=== PATIENT | male | born 1970 | race Caucasian/White ===

== ENCOUNTER 2025-04-17 06:16 | Day surgery (SDC) | payer OTHER, SELFPAY | END 2025-04-17 13:20 | disposition home or self-care (01) | LOC: GI 06:16 | PROVIDERS: ATTENDING PHYSICIAN Specialist | DX: Z12.11 Encounter for screening for malignant neoplasm of colon (principal); K51.90 Ulcerative colitis, unspecified, without complications; K52.3 Indeterminate colitis; K62.89 Other specified diseases of anus and rectum | CPT/HCPCS: 45380; 88305 ==

== ENCOUNTER 2025-04-17 13:04 | Emergency (ER) | payer OTHER, SELFPAY ==
[2025-04-17 13:09] VITALS: BP 140/76
[2025-04-17 13:59] VITALS: BP 122/70
--- NOTE | 2025-04-17 14:06 | ED.GENMED ---
History of Present Illness
General
Chief Complaint: Abdominal Pain
Time Seen by Provider: 04/17/25 14:04
History of Present Illness
History of Present Illness:
TIME OF INITIAL ENCOUNTER: 2:10 PM
HPI: The patient had colonoscopy today. He has a history of ulcerative colitis and he had several biopsies performed today. As he was waking up, he started having severe abdominal pain, vomiting, and bloody diarrhea. He has had colonoscopies in
the past and has had some pain after colonoscopies but not this severe. He was sent here for CT imaging to evaluate for perforation. However, the patient states that his pain is now improving. He did receive Decadron and Zofran prior to coming
here. He received propofol for the procedure.
EXAM:
GENERAL: Well appearing in no distress
HEENT: Moist oral mucosa
CARDIOVASCULAR: No murmurs, normal heart rate, regular rhythm, No chest wall tenderness
PULMONARY: No respiratory distress, breath sounds are clear and equal
ABDOMEN: Soft with no peritoneal signs, minimal if any abdominal tenderness
NEUROLOGIC: Excellent strength all extremities, no coordination deficits
PSYCHIATRIC: Appropriate mental status, normal insight and judgement
EXTREMITIES: Nontender, no edema, moves all extremities equally
SKIN: No rash, no lesions
NUMBER AND COMPLEXITY OF PROBLEMS ADDRESSED AT THE ENCOUNTER
� Chronic conditions affecting care: Ulcerative colitis
� Acute Exacerbation and/or Progression of Chronic Illness: This is an acute problem
� Differential Diagnosis includes: Flare of ulcerative colitis, bowel perforation, gastroenteritis, adverse reaction to sedation
AMOUNT AND/OR COMPLEXITY OF DATA TO BE REVIEWED AND ANALYZED
� I performed an independent evaluation of and my interpretation is:
EKG:
CT: CT imaging personally reviewed and I agree with radiologist interpretation that there is no perforation.
X-rays:
Laboratory Studies: White count 16.7, hemoglobin 15.2, total bili 2.9 and has been high in the past.
Other:
� Review of other/old records: I reviewed Dr. Friend's note from earlier today. He had 4 biopsies taken every 10 cm.
� Clinical information was obtained by an independent historian: I spoke to the at bedside
� Prescriptions/Medications Considered but not given:
� Further testing considered but not performed:
RISK OF COMPLICATIONS AND/OR MORBIDITY OR MORTALITY OF PATIENT MANAGEMENT
� Social determinants of health affecting care: Lives at home
� Discussion with other providers: I discussed case with Dr. Friend in the Emergency Department
� Escalation of care including admission/observation vs risk of discharge considered: The patient's symptoms spontaneously improved prior to arrival in the emergency department. CT imaging reviewed.
ANY OTHER UPDATES:
5 PM: I reassessed patient. The patient feels significant improved without any additional intervention here. He did receive some Decadron postprocedure as well as Zofran. Dr. Friend will continue to manage the ulcerative colitis as an outpatient
and will follow-up on the biopsies next week.
Past History
Past History
ED Past Medical History: Other (Ulcerative Colitis)
Social History
Tobacco: Non-smoker
Alcohol: None
Phy Exam
Physical Exam
Physical Exam:
See HPI
Course
Orders/Labs/Results
Orders:
Orders
04/17/25 14:04
CT Abd/pelvis W Iv Cont Urgent
Comment:
Reason For Exam: pain post colonoscopy; eval for perf
04/17/25 14:33
Complete Blood Count/With Diff Urgent
04/17/25 15:12
Comprehensive Metabolic Panel Urgent
Abnormal Lab Results
04/17/25 04/17/25
14:33 15:12
WBC 16.7 H 10^3/uL
(4.8-10.8)
MPV 11.2 H fL
(7.4-10.4)
Abs Immat Gran (auto) 0.1 H 10^3/uL
(0-0.05)
Absolute Neuts (auto) 15.0 H 10^3/uL
(1.4-6.5)
Absolute Lymphs (auto) 0.9 L 10^3/uL
(1.2-3.4)
Absolute Monos (auto) 0.7 H 10^3/uL
(0.1-0.6)
Neutrophils % 89.6 H %
(42.2-75.2)
Lymphocytes % 5.4 L %
(20.5-51.1)
Chloride 108 H mmol/L
(98-107)
Glucose 103 H mg/dl
(70-99)
Total Bilirubin 2.9 H mg/dl
(0.2-1.3)
04/17/25 14:33
04/17/25 15:12
Vital Signs
Initial and Last Documented VS:
Initial Vital Signs
Temp Pulse Resp BP Pulse Ox
36.6 C 59 18 140/76 100
04/17/25 13:09 04/17/25 13:09 04/17/25 13:09 04/17/25 13:09 04/17/25 13:09
Last Documented Vital Signs
Temp Pulse Resp BP Pulse Ox
36.6 C 70 20 122/70 100
04/17/25 13:09 04/17/25 13:59 04/17/25 13:59 04/17/25 13:59 04/17/25 13:59
*Critical Care Note
Total Time (30-74mins, 75-104mins- exclusive of procedures): Not Applicable
ED Attending Note
-
Portions of this chart may have been created with voice recognition software.� Occasional wrong word or��sound alike� substitutions may have occurred due to the inherent limitations of voice recognition software.
Discharge Plan
Departure
Patient Disposition: Home (Routine Discharge)
Date of Disposition: 04/17/25
Time of Disposition: 16:57
Patient with high blood pressure during this ER visit?: Yes
Discharge Problem:
Abdominal pain
Instructions: Abdominal Pain, BLOOD PRESSURE
Prescriptions:
No Action
simvastatin 20 MG tablet
10 mg PO QPM
infliximab [Remicade] 100 MG/10 ML recon soln
1 dose IV [id number]
Patient Comments:
Unknown dose amount
finasteride 5 MG tablet
2.5 mg PO DAILY
calcium carb-mag ox-zinc sulf 1 EACH tablet
1 tab PO DAILY
lidocaine [Aspercreme (lidocaine)] 1 PATCH adhesive patch,medicated
1 patch topical DAILY Qty: 30 0RF
prednisone 10 MG tablets,dose pack
10 mg PO DAILY Qty: 50 0RF
Rx Instructions:
take 4 tabs daily from 05/17 to 05/21
take 3 tabs daily 05/22 to 05/26
take 2 tabs daily 05/27 to 05/31
take 1 tab daily 06/01 to 06/05
Referrals:
Katelyn Yang CRNP [Family Provider, Family Practice]
Activity Restrictions/Additional Instructions:
CT imaging shows no sign of complication from the colonoscopy/no sign of bowel perforation. CAT scan does show inflammatory proctocolitis likely related to the known history of ulcerative colitis. Dr. Friend is aware and he said that he will manage
her ulcerative colitis as an outpatient and review the biopsy next week.
Interventions
Interventions:
*Risk Screen - Suicide Last Done: 04/17/25 13:09
*Neglect/Abuse Screening Last Done: 04/17/25 13:09
NL-Klirtd-Vakxlzqwvc Assessment Last Done: 04/17/25 15:20
Discharge Date and Time
Print Language: GEORGIAN
[2025-04-17 14:43] LABS: Hematocrit 43.8 % (39.0-52.0); Hemoglobin 15.2 g/dL (13.0-18.0); Mean Corp Hgb Conc. 34.7 g/dL (33.0-37.0); Mean Corpuscular Hgb 30.4 pg (27.0-31.0); Mean Corpuscular Volume 87.6 fL (80.0-94.0); Mean Platelet Volume 11.2 fL (7.4-10.4); Platelet Count 163 10^3/uL (130-400); Red Cell Dist. Width 12.9 % (11.5-14.5)
[2025-04-17 15:34] LABS: ALT (SGPT) 36 U/L (0-50); AST (SGOT) 29 U/L (17-59); Albumin 4.8 g/dl (3.5-5.0); Alkaline Phosphatase 49 U/L (38-126); Blood Urea Nitrogen 13 mg/dl (9-20); Calcium 8.8 mg/dl (8.4-10.2); Carbon Dioxide 25 mmol/L (22-30); Chloride 108 mmol/L (98-107); Glucose 103 mg/dl (70-99); Potassium 4.4 mmol/L (3.5-5.1); Sodium 140 mmol/L (135-145); Total Bilirubin 2.9 mg/dl (0.2-1.3); Total Protein 7.5 g/dl (6.3-8.2); eGFR > 60.00
[2025-04-17 15:51] LABS: % Basophils 0.1 % (0-2); % Eosinophils 0.1 % (0-6); % Immature Granulocytes 0.4 % (0-0.5); % Lymphocytes 5.4 % (20.5-51.1); % Monocytes 4.4 % (1.7-9.3); % Neutrophils 89.6 % (42.2-75.2); Absolute Immature Granulocytes 0.1 10^3/uL (0-0.05); Absolute Lymphocytes 0.9 10^3/uL (1.2-3.4); Absolute Monocytes 0.7 10^3/uL (0.1-0.6); Nucleated Red Blood Cells % 0 % (-); White Blood Cell Count 16.7 10^3/uL (4.8-10.8)
[2025-04-17 17:08] VITALS: BP 108/53
== END 2025-04-17 17:30 | disposition home or self-care (01) ==
LOC: EMR 13:04
PROVIDERS: EMERGENCY PHYSICIAN Emergency Medicine; FAMILY PHYSICIAN Nurse Practitioner
DX: R10.9 Unspecified abdominal pain (principal); R11.10 Vomiting, unspecified; R19.7 Diarrhea, unspecified; K51.911 Ulcerative colitis, unspecified with rectal bleeding; R03.0 Elevated blood-pressure reading, without diagnosis of hypertension; Z98.890 Other specified postprocedural states
CPT/HCPCS: 99284; 74177; 80053; 85025; Q9967